=== PATIENT | male | born 1965 | race Caucasian/White ===

== ENCOUNTER → 2018-02-27 | Outpatient (CLI) | payer MEDICARE ==
--- NOTE | 2018-02-27 14:36 | Diagnostic Imaging Report ---
PROCEDURE:TESTICULAR ULTRASOUND COMPARISON:None. INDICATIONS:Hydrocele FINDINGS: Multiple sagittal and axial images were obtained of the scrotum. Doppler examination was performed bilaterally. The right testicle measures 4.8 x 3.1 x 3.5 cm. It is of normal echogenicity. There are multiple small testicular calcifications, but no focal masses. The vascular supply is within normal limits, without evidence of testicular torsion. The right epididymis measures approximately 1.2 x 1.0 x 1.0 cm and is within normal limits. There is a small right hydrocele. No right varicocele. The left testicle measures 4.5 x 2.4 x 3.2 cm. It is within normal echogenicity. There are multiple small left testicular calcification, but no focal masses. The vascular supply is within normal limits, without evidence for torsion. The left epididymis measures approximately 1.1 x 0.6 x 0.7 cm and contains multiple small cysts, measuring up to 4 mm. There is a large left hydrocele. No varicocele. There is no sonographic evidence for right or left inguinal hernia. Overlying scrotal tissue is within normal limits. CONCLUSION: Large left hydrocele. Small right hydrocele. Testicular microlithiasis. No evidence of testicular torsion, mass, or inflammatory disease. Dictated by: Luis A Valera M.D. on 02/27/2018 at 14:41 Electronically approved by: Luis A Valera M.D. on 02/27/2018 at 14:41
--- NOTE | 2018-02-27 14:39 | Diagnostic Imaging Report ---
PROCEDURE:US TESTICULAR DOPPLER LTD Please see separate dictation for testicular ultrasound (accession #[id number]) for full results Dictated by: Luis A Valera M.D. on 02/27/2018 at 14:44 Electronically approved by: Luis A Valera M.D. on 02/27/2018 at 14:44
== END ==
LOC: EDBD → US 12:59
PROVIDERS: ATTEND Urology
DX: N43.3 Hydrocele, unspecified (principal)
CPT/HCPCS: 76870; 93976